=== PATIENT | male | born 1940 | race Caucasian/White ===

== ENCOUNTER → 2017-02-16 | Outpatient (CLI) | payer MEDICARE ==
--- NOTE | 2017-02-16 12:59 | XR ---
EXAMINATION TYPE: XR chest 2V DATE OF EXAM: 02/16/2017 COMPARISON: NONE HISTORY: Shortness of breath TECHNIQUE: Frontal and lateral views of the chest are obtained. FINDINGS: There is no focal air space opacity, pleural effusion, or pneumothorax seen. There is even tration of the right hemidiaphragm. The cardiac silhouette size is within normal limits. The osseou s structures are intact. Degenerative changes are seen of the thoracic spine. IMPRESSION: No acute cardiopulmonary process.
== END | disposition home or self-care (01) ==
LOC: RADXRMAIN 12:11
PROVIDERS: ATTEND Internal Medicine
DX: R06.02 Shortness of breath (principal)
CPT/HCPCS: 71020

== ENCOUNTER 2017-09-20 15:14 | Emergency (ER) | payer MEDICARE ==
[2017-09-20] MEDS ORDERED: ONDANSETRON 4 MG/2 ML VIAL IVP STA (17:33)
[2017-09-20] MEDS ORDERED: SODIUM CHLORIDE 0.9% 1,000 ML IV STA (17:33)
[2017-09-20 18:37] LABS: Basophils % (A) 0 %; Eosinophils # (A) 0.1 k/uL (0-0.7); Eosinophils % (A) 2 %; HCT 46.1 % (39.0-53.0); HGB 14.5 gm/dL (13.0-17.5); Lymphocytes # (A) 1.4 k/uL (1.0-4.8); Lymphocytes % (A) 21 %; MCH 27.6 pg (25.0-35.0); MCHC 31.5 g/dL (31.0-37.0); MCV 87.5 fL (80.0-100.0); Mean Platelet Volume 6.7; Monocytes # (A) 0.4 k/uL (0-1.0); Monocytes % (A) 6 %; Neutrophils # (A) 4.7 k/uL (1.3-7.7); Neutrophils % (A) 69 %; Platelet Count 253 k/uL (150-450); RBC 5.27 m/uL (4.30-5.90); WBC 6.8 k/uL (3.8-10.6)
[2017-09-20 18:40] LABS: ALT 33 U/L (21-72); AST 29 U/L (17-59); Albumin 3.6 g/dL (3.5-5.0); Alkaline Phosphatase 50 U/L (38-126); Anion Gap 10 mmol/L; Blood Urea Nitrogen 14 mg/dL (9-20); Calcium 9.3 mg/dL (8.4-10.2); Carbon Dioxide 26 mmol/L (22-30); Chloride 106 mmol/L (98-107); Glucose 92 mg/dL (74-99); Potassium 4.1 mmol/L (3.5-5.1); Sodium 142 mmol/L (137-145); Total Bilirubin 0.4 mg/dL (0.2-1.3); Total Protein 5.9 g/dL (6.3-8.2)
[2017-09-20 18:49] LABS: Creatine Kinase 80 U/L (55-170)
[2017-09-20 19:02] LABS: Troponin I <0.012 ng/mL (0.000-0.034)
[2017-09-20 19:03] LABS: Creatine Kinase MB 3.2 ng/mL (0.0-2.4)
[2017-09-20 19:07] VITALS: RESP 18
[2017-09-20 20:22] VITALS: TEMP 98.1
--- NOTE | 2017-09-20 20:28 | ED ---
General Adult HPI - General Chief complaint: GI Bleed Stated complaint: blood in stool Time Seen by Provider: 09/20/17 17:33 Source: patient Mode of arrival: ambulatory Limitations: no limitations - History of Present Illness Initial comments: 77 years old male comes in with the diarrhea for last 2 weeks, he said he see some black tarry stuffiness stools this morning I denies any pain is worried about the GI bleed he has a colonoscopy done a few years ago he had some polyps. No headaches no neck pain no chest pain or shortness of breath no abdominal pain has some blood in the stool or black stool no frequency urgency dysuriasymptoms of TIA or CVA - Related Data Home Medications Medication Instructions Recorded Confirmed Acetaminophen Tab [Tylenol Tab] 325 mg PO Q6HR PRN 09/20/17 09/20/17 Cholecalciferol [Vitamin D3] 1,000 unit PO DAILY 09/20/17 09/20/17 Doxazosin Mesylate 8 mg PO DAILY 09/20/17 09/20/17 Glucosam/Shoaib-Msm1/C/Ji/Bosw 1 tab PO DAILY 09/20/17 09/20/17 [Glucosamine-Chondroitin Tablet] Multivitamins, Thera [Multivitamin 1 tab PO DAILY 09/20/17 09/20/17 (formulary)] [place]-3 Fatty Acids/Fish Oil [Fish 1 cap PO DAILY 09/20/17 09/20/17 Oil 1,000 mg Softgel] Pramipexole [Mirapex] 1 mg PO TID 09/20/17 09/20/17 Tamsulosin HCl [Flomax] 0.4 mg PO BID 09/20/17 09/20/17 Turmeric Root Extract [Turmeric] 500 mg PO DAILY 09/20/17 09/20/17 traZODone HCL [TraZODone HCl] 50 mg PO HS 09/20/17 09/20/17 Allergies Allergy/AdvReac Type Severity Reaction Status Date / Time amoxicillin Allergy Rash/Hives Verified 09/20/17 18:19 ENVIRONMENTAL Allergy Dyspnea/Itc Uncoded 09/20/17 18:19 h Review of Systems ROS Statement: Those systems with pertinent positive or pertinent negative responses have been documented in the HPI. ROS Other: All systems not noted in ROS Statement are negative. Past Medical History Additional Past Medical History / Comment(s): seasonal allergies History of Any Multi-Drug Resistant Organisms: None Reported Past Surgical History: Hernia Repair Past Psychological History: No Psychological Hx Reported Smoking Status: Current some day smoker Past Alcohol Use History: None Reported Past Drug Use History: None Reported General Exam - General Exam Comments Initial Comments: General: The patient is awake and alert, in no distress, and does not appear acutely ill. Skin: Skin is warm and dry and no rashes or lesions are noted. Eye: Pupils are equal, round and reactive to light, extra-ocular movements are intact; there is normal conjunctiva bilaterally. Ears, nose, mouth and throat: There are moist mucous membranes and no oral lesions. Neck: The neck is supple, there is no tenderness or JVD. Cardiovascular: There is a regular rate and rhythm. No murmur, rub or gallop is appreciated. Respiratory: To auscultation bilateral, no wheezing no rhonchi no distress respiratory carter noticed Gastrointestinal: Soft, non-distended, non-tender abdomen without masses or organomegaly noted. There is no rebound or guarding present. Bowel sounds are unremarkable. Rectal exam showed some external hemorrhoids, they were not thrombosed rectal exam good tone and no colton blood noticed blood draws or 7 was sent for occult blood , also noticed reducible hernia on the right inguinal area Back: There is no tenderness to palpation in the midline. There is no obvious deformity. Musculoskeletal: Normal ROM, no tenderness, There is no pedal edema. There is no calf tenderness or swelling. No cords were appreciated. Neurological: CN II-XII intact, Cranial nerves III through XII are intact. There are no obvious motor or sensory deficits. Coordination appears grossly intact. Speech is normal. Psychiatric: Cooperative, appropriate mood & affect, normal judgment. Limitations: no limitations Course Vital Signs 09/20/17 09/20/17 09/20/17 15:24 19:06 20:19 Temperature 97.8 F 98.1 F Pulse Rate 92 70 70 Respiratory 20 18 18 Rate Blood Pressure 136/74 137/80 136/65 O2 Sat by Pulse 96 95 95 Oximetry Patient was reassessed, noticed a hemoglobin is quite stable is 14.5 occult blood is negative troponin and compress metabolic panel absolutely unremarkable him a he has not been able to give us a stool sample of her like to send stool for C. difficile stool cultures and over and parasite. Now patient is advised to follow up with the GI doctor or general surgeon so we could he he could have a colonoscopy EGD as well as right-sided hernia repair which she has a long time and, is not incarcerated is easily reducible I offered the patient to see Dr. Lim for his scopes in right inguinal hernia, patient has seen somebody who he wants to see again for the scopes in the inguinal hernia repair, he is not sure about the name, he will discussed that with the Dr. Hughes Medical Decision Making - Lab Data Result diagrams: 09/20/17 18:20 09/20/17 18:20 Lab Results 09/20/17 09/20/17 09/20/17 Range/Units 18:20 18:20 18:20 WBC 6.8 (3.8-10.6) k/uL RBC 5.27 (4.30-5.90) m/uL Hgb 14.5 (13.0-17.5) gm/dL Hct 46.1 (39.0-53.0) % MCV 87.5 (80.0-100.0) fL MCH 27.6 (25.0-35.0) pg MCHC 31.5 (31.0-37.0) g/dL RDW 13.0 (11.5-15.5) % Plt Count 253 (150-450) k/uL Neutrophils % 69 % Lymphocytes % 21 % Monocytes % 6 % Eosinophils % 2 % Basophils % 0 % Neutrophils # 4.7 (1.3-7.7) k/uL Lymphocytes # 1.4 (1.0-4.8) k/uL Monocytes # 0.4 (0-1.0) k/uL Eosinophils # 0.1 (0-0.7) k/uL Basophils # 0.0 (0-0.2) k/uL APTT (22.0-30.0) sec Sodium 142 (137-145) mmol/L Potassium 4.1 (3.5-5.1) mmol/L Chloride 106 (98-107) mmol/L Carbon Dioxide 26 (22-30) mmol/L Anion Gap 10 mmol/L BUN 14 (9-20) mg/dL Creatinine 0.80 (0.66-1.25) mg/dL Est GFR (CKD-EPI)AfAm >90 (>60 ml/min/1.73 sqM) Est GFR (CKD-EPI)NonAf 86 (>60 ml/min/1.73 sqM) Glucose 92 (74-99) mg/dL Plasma Lactic Acid Cortes (0.7-2.0) mmol/L Calcium 9.3 (8.4-10.2) mg/dL Total Bilirubin 0.4 (0.2-1.3) mg/dL AST 29 (17-59) U/L ALT 33 (21-72) U/L Alkaline Phosphatase 50 (38-126) U/L Total Creatine Kinase 80 (55-170) U/L CK-MB (CK-2) 3.2 H* (0.0-2.4) ng/mL CK-MB (CK-2) Rel Index 4.0 Troponin I <0.012 (0.000-0.034) ng/mL Total Protein 5.9 L (6.3-8.2) g/dL Albumin 3.6 (3.5-5.0) g/dL Stool Occult Blood (Negative) 09/20/17 09/20/17 09/20/17 Range/Units 18:20 18:20 18:20 WBC (3.8-10.6) k/uL RBC (4.30-5.90) m/uL Hgb (13.0-17.5) gm/dL Hct (39.0-53.0) % MCV (80.0-100.0) fL MCH (25.0-35.0) pg MCHC (31.0-37.0) g/dL RDW (11.5-15.5) % Plt Count (150-450) k/uL Neutrophils % % Lymphocytes % % Monocytes % % Eosinophils % % Basophils % % Neutrophils # (1.3-7.7) k/uL Lymphocytes # (1.0-4.8) k/uL Monocytes # (0-1.0) k/uL Eosinophils # (0-0.7) k/uL Basophils # (0-0.2) k/uL APTT 22.4 (22.0-30.0) sec Sodium (137-145) mmol/L Potassium (3.5-5.1) mmol/L Chloride (98-107) mmol/L Carbon Dioxide (22-30) mmol/L Anion Gap mmol/L BUN (9-20) mg/dL Creatinine (0.66-1.25) mg/dL Est GFR (CKD-EPI)AfAm (>60 ml/min/1.73 sqM) Est GFR (CKD-EPI)NonAf (>60 ml/min/1.73 sqM) Glucose (74-99) mg/dL Plasma Lactic Acid Cortes 0.6 L (0.7-2.0) mmol/L Calcium (8.4-10.2) mg/dL Total Bilirubin (0.2-1.3) mg/dL AST (17-59) U/L ALT (21-72) U/L Alkaline Phosphatase (38-126) U/L Total Creatine Kinase (55-170) U/L CK-MB (CK-2) (0.0-2.4) ng/mL CK-MB (CK-2) Rel Index Troponin I (0.000-0.034) ng/mL Total Protein (6.3-8.2) g/dL Albumin (3.5-5.0) g/dL Stool Occult Blood Negative (Negative) Disposition Clinical Impression: Rectal bleed, Right inguinal hernia, Diarrhea Disposition: HOME SELF-CARE Condition: Good Instructions: Gastrointestinal Bleeding (ED) Referrals: Ian Hughes MD [Primary Care Provider] - 1-2 days
[2017-09-20 21:01] VITALS: BP 133/74; PULSE 88
== END 2017-09-20 21:00 | disposition home or self-care (01) ==
LOC: EC 15:14
DX: K40.90 Unilateral inguinal hernia, without obstruction or gangrene, not specified as recurrent (principal); R19.7 Diarrhea, unspecified; K62.5 Hemorrhage of anus and rectum; F17.200 Nicotine dependence, unspecified, uncomplicated; Z79.899 Other long term (current) drug therapy; Z88.0 Allergy status to penicillin; Z91.048 Other nonmedicinal substance allergy status
CPT/HCPCS: 99284; 96374; 36415; 80053; 82550; 82553; 83605; 84484; 85025; 85730; 82272; 87324; 87045; 87046; J2405

== ENCOUNTER → 2017-10-04 | Day surgery (SDC) | payer MEDICARE ==
[2017-09-27 17:50] VITALS: BMI 24.4
[~2017-10-04] MED LIST: DEXAMETHASONE SOD PHOSPHATE 10 MG/ML 1 ML VIAL IV ONE; LACTATED RINGERS 1,000 ML IV SCH; LIDOCAINE 1% 20 ML VIAL (10MG/ML) FOR IV START INTRADERMA ONE; LIDOCAINE 1% INJ 10MG/ML (20 ML MDV) ONE; MORPHINE SULFATE 4MG/4ML SYRG IV PRN; ONDANSETRON 4 MG/2 ML VIAL IVP ONE; PROPOFOL 10 MG/ML 20 ML VIAL IV ONE
[2017-10-04 09:43] VITALS: TEMP 98.7
--- NOTE | 2017-10-04 10:39 | P.GSHP ---
History of Present Illness H&P Date: 10/04/17 Chief Complaint: Diarrhea, colitis This a 69-year-old male who presents for colonoscopy. He's had issues with diarrhea. Past Medical History Past Medical History: Prostate Disorder Additional Past Medical History / Comment(s): SL Seasonal allergies. DIARRHEA FOR FEW WEEKS. History of Any Multi-Drug Resistant Organisms: None Reported Past Surgical History: Hernia Repair Additional Past Surgical History / Comment(s): LASER EYE. COLONOSCOPY. Past Anesthesia/Blood Transfusion Reactions: Previous Problems w/ Anesthesia Additional Past Anesthesia/Blood Transfusion Reaction / Comment(s): NEEDED MORE IV SEDATION FOR COLONOSCOPY Smoking Status: Current every day smoker - Past Family History Brother(s) Family Medical History: Cancer Medications and Allergies Home Medications Medication Instructions Recorded Confirmed Type Acetaminophen Tab [Tylenol Tab] 325 mg PO Q6HR PRN 09/20/17 10/04/17 History Cholecalciferol [Vitamin D3] 1,000 unit PO DAILY 09/20/17 10/04/17 History Doxazosin Mesylate 8 mg PO DAILY 09/20/17 10/04/17 History Glucosam/Shoaib-Msm1/C/Ji/Bosw 1 tab PO DAILY 09/20/17 10/04/17 History [Glucosamine-Chondroitin Tablet] Multivitamins, Thera [Multivitamin 1 tab PO DAILY 09/20/17 10/04/17 History (formulary)] [place]-3 Fatty Acids/Fish Oil [Fish 1 cap PO DAILY 09/20/17 10/04/17 History Oil 1,000 mg Softgel] Pramipexole [Mirapex] 1 mg PO TID PRN 09/20/17 10/04/17 History Tamsulosin HCl [Flomax] 0.4 mg PO BID 09/20/17 10/04/17 History Turmeric Root Extract [Turmeric] 500 mg PO DAILY 09/20/17 10/04/17 History Aspirin EC [Ecotrin Low Dose] 81 mg PO DAILY 09/27/17 10/04/17 History Ibuprofen [Advil] 600 mg PO Q8HR PRN 09/27/17 10/04/17 History Allergies Allergy/AdvReac Type Severity Reaction Status Date / Time amoxicillin Allergy Rash/Hives Verified 10/04/17 09:28 ENVIRONMENTAL Allergy NASAL Uncoded 10/04/17 09:28 CONGESTION Surgical - Exam Vital Signs Temp Pulse Resp BP Pulse Ox 98.7 F 77 18 137/78 96 10/04/17 09:41 10/04/17 09:41 10/04/17 09:41 10/04/17 09:41 10/04/17 09:41 - General well developed, no distress - Eyes PERRL - ENT normal pinna - Neck no masses - Respiratory normal expansion - Cardiovascular Rhythm: regular - Abdomen Abdomen: soft, non tender Assessment and Plan Assessment: Diarrhea. We'll perform colonoscopy.
--- NOTE | 2017-10-04 11:04 | P.OP ---
Date of Procedure: 10/04/17 Preoperative Diagnosis: Diarrhea Postoperative Diagnosis: Internal and external hemorrhoids Diverticulosis Colon polyp at 50 cm Random sigmoid colon colon biopsy pathology pending Procedure(s) Performed: Colonoscopy Anesthesia: MAC Surgeon: Natanael Lim Pathology: other (Colonic polyp at 50 cm,Sigmoid Biopsy) Condition: stable Disposition: PACU Description of Procedure: The patient's placed on the endoscopy table lateral position. He received IV sedation. Digital rectal exam was performed which revealed internal and external hemorrhoids. The flexible colonoscope was then placed patient anus passed throughout the the colon. The ileocecal valve was visualized secondary to tortuosity valve. Scope was withdrawn. The remainder of the right colon, transverse colon appeared normal. In the descending colon there is diverticular changes. At the 50 cm cash there was a large fluffy polyp was removed with the snare. Scope was withdrawn and in the sigmoid colon there was extensive diverticular changes. A biopsy of the; was performed with cold forcep. Scope summer back the rectum and this appeared normal. Scope withdrawn for patient.
[2017-10-04 11:54] VITALS: BP 125/72; PULSE 83; RESP 18
== END | disposition home or self-care (01) ==
LOC: ORWHC2ENDO 09:07
PROVIDERS: ATTEND Surgery
DX: D12.4 Benign neoplasm of descending colon (principal); K57.30 Diverticulosis of large intestine without perforation or abscess without bleeding; K64.8 Other hemorrhoids; K64.4 Residual hemorrhoidal skin tags; F41.9 Anxiety disorder, unspecified; N40.0 Benign prostatic hyperplasia without lower urinary tract symptoms; F17.200 Nicotine dependence, unspecified, uncomplicated; Z91.09 Other allergy status, other than to drugs and biological substances; Z88.0 Allergy status to penicillin; Z79.82 Long term (current) use of aspirin; Z79.899 Other long term (current) drug therapy; Z80.9 Family history of malignant neoplasm, unspecified
CPT/HCPCS: 45385; 45380; 88305; J2001; J2704

== ENCOUNTER 2019-08-27 14:22 | Observation (INO) | payer MEDICARE ==
[2019-08-27] MEDS ORDERED: SODIUM CHLORIDE 0.9% 1,000 ML IV STA (17:11)
[2019-08-27] MEDS ORDERED: ACETAMINOPHEN TAB 500 MG TAB PO PRN (17:11)
[2019-08-27 17:59] LABS: Basophils % (A) 0 %; Eosinophils # (A) 0.1 k/uL (0-0.7); Eosinophils % (A) 2 %; HCT 44.2 % (39.0-53.0); HGB 14.1 gm/dL (13.0-17.5); Lymphocytes # (A) 1.4 k/uL (1.0-4.8); Lymphocytes % (A) 23 %; MCH 27.9 pg (25.0-35.0); MCHC 31.9 g/dL (31.0-37.0); MCV 87.5 fL (80.0-100.0); Mean Platelet Volume 7.1; Monocytes # (A) 0.3 k/uL (0-1.0); Monocytes % (A) 5 %; Neutrophils # (A) 4.3 k/uL (1.3-7.7); Neutrophils % (A) 68 %; Platelet Count 270 k/uL (150-450); RBC 5.06 m/uL (4.30-5.90); RDW 12.9 % (11.5-15.5); WBC 6.4 k/uL (3.8-10.6)
[2019-08-27 18:23] LABS: ALT 16 U/L (4-49); AST 28 U/L (17-59); African American GFR (CKD) >90 (>60 ml/min/1.73 sqM); Albumin 3.7 g/dL (3.5-5.0); Alkaline Phosphatase 64 U/L (38-126); Anion Gap 7 mmol/L; Blood Urea Nitrogen 17 mg/dL (9-20); Calcium 8.7 mg/dL (8.4-10.2); Carbon Dioxide 25 mmol/L (22-30); Chloride 105 mmol/L (98-107); Glucose 93 mg/dL (74-99); Non-African American GFR(CKD) 82 (>60 ml/min/1.73 sqM); Potassium 4.1 mmol/L (3.5-5.1); Sodium 137 mmol/L (137-145); Total Bilirubin 0.3 mg/dL (0.2-1.3); Total Protein 6.4 g/dL (6.3-8.2)
[2019-08-27] MEDS ORDERED: IBUPROFEN 600 MG TAB PO PRN (19:43)
[2019-08-27] MEDS ORDERED: [UNRECOGNIZED DRUG - OTHER] PO PRN (19:43)
[2019-08-27] MEDS ORDERED: FUROSEMIDE 20 MG TAB PO PRN (19:43)
[2019-08-27] MEDS: TAMSULOSIN 0.4 MG CAP.ER.24H PO SCH (21:54)
[2019-08-27] MEDS: traZODone HCL 50 MG TAB PO SCH (21:54)
[2019-08-27] MEDS: PRAMIPEXOLE 1 MG TAB PO PRN (21:57)
[2019-08-28] MEDS: MELOXICAM 7.5 MG TAB PO SCH (09:08)
[2019-08-28] MEDS: LACTOBACILLUS ACIDOPH & BULGAR 1 EACH PACKET PO SCH (09:08)
[2019-08-28] MEDS: DOXAZOSIN 4 MG TAB PO SCH ×2 (09:10→20:24)
[2019-08-28] MEDS: TAMSULOSIN 0.4 MG CAP.ER.24H PO SCH ×2 (09:11→20:24)
[2019-08-28] MEDS: PANTOPRAZOLE 40 MG TABLET PO SCH (09:11)
[2019-08-28 09:31] LABS: Basophils % (A) 1 %; Eosinophils # (A) 0.3 k/uL (0-0.7); Eosinophils % (A) 4 %; HCT 47.2 % (39.0-53.0); Lymphocytes # (A) 1.7 k/uL (1.0-4.8); Lymphocytes % (A) 29 %; MCH 28.2 pg (25.0-35.0); MCHC 31.9 g/dL (31.0-37.0); MCV 88.7 fL (80.0-100.0); Mean Platelet Volume 7.1; Monocytes # (A) 0.3 k/uL (0-1.0); Monocytes % (A) 6 %; Neutrophils # (A) 3.4 k/uL (1.3-7.7); Neutrophils % (A) 57 %; Platelet Count 270 k/uL (150-450); RBC 5.33 m/uL (4.30-5.90); RDW 12.9 % (11.5-15.5); WBC 5.9 k/uL (3.8-10.6)
[2019-08-28 09:48] LABS: ALT 17 U/L (4-49); AST 30 U/L (17-59); African American GFR (CKD) >90 (>60 ml/min/1.73 sqM); Albumin 3.7 g/dL (3.5-5.0); Alkaline Phosphatase 60 U/L (38-126); Anion Gap 8 mmol/L; Blood Urea Nitrogen 14 mg/dL (9-20); Calcium 8.9 mg/dL (8.4-10.2); Carbon Dioxide 26 mmol/L (22-30); Chloride 105 mmol/L (98-107); Glucose 88 mg/dL (74-99); Non-African American GFR(CKD) 82 (>60 ml/min/1.73 sqM); Potassium 4.4 mmol/L (3.5-5.1); Sodium 139 mmol/L (137-145); Total Bilirubin 0.8 mg/dL (0.2-1.3); Total Protein 6.6 g/dL (6.3-8.2)
[2019-08-28] MEDS ORDERED: VANCOMYCIN IV PER PHARMACY 1 EACH MISC MISCELLANE PRN (10:30)
--- NOTE | 2019-08-28 10:31 | P.HPIM ---
History of Present Illness H&P Date: 08/28/19 Chief Complaint: Failed outpatient treatment cellulitis This is an 79-year-old male patient who presented instructed mid from his PCP with failed outpatient treatment for bilateral lower summary cellulitis. Patient reports that he's been dealing with this issue since beginning of July and his PCP did want to initially admit him but patient declined. Patient reports that the cellulitis was up higher on his leg but that has improved but he still is having issues with it not completely resolving. Patient denies any recent fevers at home does note he has had intermittent drainage from left lower extremity. Patient reports last antibiotic he was on was doxycycline. Patient's additional medical history includes prostate disorder, nicotine dependence and seasonal ALLERGY. At this time blood culture has been ordered. Infectious disease consult placed Review of Systems Please refer to HPI otherwise unremarkable Past Medical History Past Medical History: Prostate Disorder Additional Past Medical History / Comment(s): SL Seasonal allergies. DIARRHEA FOR FEW WEEKS. History of Any Multi-Drug Resistant Organisms: None Reported Past Surgical History: Hernia Repair Additional Past Surgical History / Comment(s): LASER EYE. COLONOSCOPY. Past Anesthesia/Blood Transfusion Reactions: Previous Problems w/ Anesthesia Additional Past Anesthesia/Blood Transfusion Reaction / Comment(s): NEEDED MORE IV SEDATION FOR COLONOSCOPY Past Psychological History: No Psychological Hx Reported Smoking Status: Current every day smoker Past Alcohol Use History: None Reported Additional Past Alcohol Use History / Comment(s): SMOKES ON/OFF MOST OF ADULT LIFE, 1/2 PPD- Started smoking in 1954. Past Drug Use History: None Reported - Past Family History Brother(s) Family Medical History: Cancer Medications and Allergies Home Medications Medication Instructions Recorded Confirmed Type Acetaminophen Tab [Tylenol Tab] 325 mg PO Q6HR PRN 09/20/17 08/27/19 History Doxazosin Mesylate 8 mg PO DAILY 09/20/17 08/27/19 History Pramipexole [Mirapex] 1 mg PO TID PRN 09/20/17 08/27/19 History Tamsulosin HCl [Flomax] 0.4 mg PO BID 09/20/17 08/27/19 History Ibuprofen [Advil] 600 mg PO Q8HR PRN 09/27/17 08/27/19 History Celecoxib [CeleBREX] 200 mg PO DAILY 08/27/19 08/27/19 History Doxycycline Hyclate 100 mg PO AC-BID 08/27/19 08/27/19 History Furosemide [Lasix] 20 mg PO HS PRN 08/27/19 08/27/19 History Rhett's Leg Cramps Pm 2 - 3 tab PO Q4H PRN 08/27/19 08/27/19 History L.acidoph,Paracasei, B.lactis 1 cap PO DAILY 08/27/19 08/27/19 History [Probiotic] Omeprazole 20 mg PO DAILY 08/27/19 08/27/19 History traZODone HCL [TraZODone HCl] 50 mg PO HS 08/27/19 08/27/19 History Allergies Allergy/AdvReac Type Severity Reaction Status Date / Time amoxicillin Allergy Rash/Hives Verified 08/27/19 19:25 ENVIRONMENTAL Allergy NASAL Uncoded 08/27/19 19:25 CONGESTION Physical Exam Vitals: Vital Signs Temp Pulse Resp BP Pulse Ox 08/28/19 07:39 97.5 F L 64 16 146/77 96 08/28/19 05:05 97.8 F 77 17 150/88 95 08/27/19 21:19 97.4 F L 83 18 162/78 97 08/27/19 17:49 97.4 F L 82 18 144/75 95 Intake and Output 08/27/19 08/28/19 08/28/19 22:59 06:59 14:59 Intake Total 160 Balance 160 Intake: Intake, IV Titration 160 Amount Sodium Chloride 0.9% 1, 160 000 ml @ 20 mls/hr IV . Q24H [facility] Rx#:[id number] Other: Voiding Method Toilet Toilet # Voids 1 Weight 89.358 kg Head normocephalic Neck supple Lungs clear to auscultation bilaterally no wheezing or crackles Heart regular rate and rhythm S1-S2, no rub or gallop Abdomen is soft nontender nondistended positive bowel sounds no hepa tosplenomegaly Extremities left lower extremity erythema up to knee. Right lower extremity erythema midshin Neuro alert and orientated to 3 Results CBC & Chem 7: 08/28/19 07:59 08/28/19 07:59 Thrombosis Risk Factor Assmnt - Choose All That Apply Each Factor Represents 1 point: Swollen legs (current) Each Risk Factor Represents 3 Points: Age 75 years or older Thrombosis Risk Factor Assessment Total Risk Factor Score: 4 Thrombosis Risk Factor Assessment Level: Moderate Risk Assessment and Plan Assessment: 1. Bilateral lower extremity cellulitis with failed outpatient treatment. Infectious disease has been consulted will discuss antibiotic choice with infectious disease. Bilateral lower extremity venous Doppler ordered to rule out DVT. Blood culture ordered 2. History of prostate disorder. She is maintained on Flomax 3. History of seasonal ALLERGIES 4. Nicotine dependence. Patient educated greater than 3 minutes on smoking sensation. Nicotine patch ordered DVT prophylaxis Lovenox. GI prophylaxis Pepcid Time with Patient: Greater than 30 (Greater than 60% of the total time spent in counseling and coordination of care. I performed an examination of the patient and discussed their management with the Nurse Practitioner. I have reviewed the Nurse Practitioner's notes and agree with the documented findings and plan of care)
[2019-08-28] MEDS ORDERED: VANCOMYCIN 1,500 MG in SODIUM CHLORIDE 0.9% 250 ML IVPB SCH (12:00)
--- NOTE | 2019-08-28 12:12 | US ---
EXAMINATION TYPE: US venous doppler duplex LE DATE OF EXAM: 08/28/2019 10:25 AM COMPARISON: NONE CLINICAL HISTORY: Bilateral lower extremity erythema. Edema and redness. SIDE PERFORMED: Bilateral TECHNIQUE: The lower extremity deep venous system is examined utilizing real time linear array sonog zbigniew with graded compression, doppler sonography and color-flow sonography. VESSELS IMAGED: External Iliac Vein (EIV) Common Femoral Vein Deep Femoral Vein Greater Saphenous Vein * Femoral Vein Popliteal Vein Small Saphenous Vein * Proximal Calf Veins (* superficial vessels) Right Leg: Negative for DVT Left Leg: Negative for DVT IMPRESSION: 1. Bilateral lower extremity ultrasound negative for deep venous thrombosis.
--- NOTE | 2019-08-28 17:30 | P.CONS ---
History of Present Illness - Reason for Consult Consult date: 08/28/19 Bilateral lower extremity cellulitis left greater than right failing outpat Requesting physician: Ian Hughes - Chief Complaint Left leg pain swelling and redness x few weeks - History of Present Illness Patient is 79-year-old male who has been admitted directly to the hospital with concern for left lower eczema cellulitis failing outpatient oral antibiotic therapy, patient apparently has been dealing with swelling more marked the left leg followed by redness or the last few weeks that has been treated with 2 different courses of oral antibiotics initially with clindamycin and subsequently with oral doxycycline however the patient did not have any improvement subsequently the patient was admitted directly to the hospital, patient may symptom has been swelling to the leg especially the left leg for the patient did have Doppler has been negative for DVT, he did have some dull aching pain to the leg and has been about 3-4 out of 10 and no radiation patient did have dry scaly skin currently with no open wound or any drainage and has mostly diffuse redness to the left leg, because of his outpatient oral antibiotics failure and is ALLERGIC to amoxicillin without rash no history of anaphylaxis the patient was started on vancomycin and infectious disease was consulted for further recommendation regarding antibiotic therapy, patient apparently did have some chronic swelling to the lower simply for which the patient supposed to use some compression stocking not using that often though Review of Systems Positive point has been mentioned in the HPI rest of the systems are negative Past Medical History Past Medical History: Prostate Disorder Additional Past Medical History / Comment(s): SL Seasonal allergies. DIARRHEA FOR FEW WEEKS. History of Any Multi-Drug Resistant Organisms: None Reported Past Surgical History: Hernia Repair Additional Past Surgical History / Comment(s): LASER EYE. COLONOSCOPY. Past Anesthesia/Blood Transfusion Reactions: Previous Problems w/ Anesthesia Additional Past Anesthesia/Blood Transfusion Reaction / Comm: NEEDED MORE IV SEDATION FOR COLONOSCOPY Past Psychological History: No Psychological Hx Reported Smoking Status: Current every day smoker Past Alcohol Use History: None Reported Additional Past Alcohol Use History / Comment(s): SMOKES ON/OFF MOST OF ADULT LIFE, 1/2 PPD- Started smoking in 4. Past Drug Use History: None Reported - Past Family History Brother(s) Family Medical History: Cancer Medications and Allergies Home Medications Medication Instructions Recorded Confirmed Type Acetaminophen Tab [Tylenol Tab] 325 mg PO Q6HR PRN 09/20/17 08/27/19 History Doxazosin Mesylate 8 mg PO DAILY 09/20/17 08/27/19 History Pramipexole [Mirapex] 1 mg PO TID PRN 09/20/17 08/27/19 History Tamsulosin HCl [Flomax] 0.4 mg PO BID 09/20/17 08/27/19 History Ibuprofen [Advil] 600 mg PO Q8HR PRN 09/27/17 08/27/19 History Celecoxib [CeleBREX] 200 mg PO DAILY 08/27/19 08/27/19 History Doxycycline Hyclate 100 mg PO AC-BID 08/27/19 08/27/19 History Furosemide [Lasix] 20 mg PO HS PRN 08/27/19 08/27/19 History Rhett's Leg Cramps Pm 2 - 3 tab PO Q4H PRN 08/27/19 08/27/19 History L.acidoph,Paracasei, B.lactis 1 cap PO DAILY 08/27/19 08/27/19 History [Probiotic] Omeprazole 20 mg PO DAILY 08/27/19 08/27/19 History traZODone HCL [TraZODone HCl] 50 mg PO HS 08/27/19 08/27/19 History Allergies Allergy/AdvReac Type Severity Reaction Status Date / Time amoxicillin Allergy Rash/Hives Verified 08/27/19 19:25 ENVIRONMENTAL Allergy NASAL Uncoded 08/27/19 19:25 CONGESTION Physical Exam Vitals: Vital Signs Temp Pulse Resp BP Pulse Ox 08/28/19 12:48 98 F 74 16 133/74 96 08/28/19 11:30 97.8 F 63 18 127/74 94 L 08/28/19 07:39 97.5 F L 64 16 146/77 96 08/28/19 05:05 97.8 F 77 17 150/88 95 08/27/19 21:19 97.4 F L 83 18 162/78 97 08/27/19 17:49 97.4 F L 82 18 144/75 95 Intake and Output 08/28/19 08/28/19 08/28/19 06:59 14:59 22:59 Intake Total 160 250 Balance 160 250 Intake: Intake, IV Titration 160 250 Amount Sodium Chloride 0.9% 1, 160 000 ml @ 20 mls/hr IV . Q24H [facility] Rx#:[id number] Vancomycin 1,500 mg In 250 Sodium Chloride 0.9% 250 ml @ 125 mls/hr IVPB Q12H REPLACED BY [facility] Rx#:[id number] Other: Voiding Method Toilet Toilet # Voids 3 # Bowel Movements 1 GENERAL DESCRIPTION: An elderly male lying in bed, no distress. No tachypnea or accessory muscle of respiration use. HEENT: Shows Pallor , no scleral icterus. Oral mucous membrane is dry. No pharyngeal erythema or thrush NECK: Trachea central, no thyromegaly. LUNGS: Unlabored breathing. Clear to auscultation anteriorly. No wheeze or crackle. HEART: S1, S2, regular rate and rhythm. No loud murmur ABDOMEN: Soft, no tenderness , guarding or rigidity, no organomegaly EXTREMITIES: Left leg swelling diffuse and redness did have dry scaly skin currently no open wound or any drainage right leg did have minimal redness above the ankle area SKIN: No rash, no masses palpable. NEUROLOGICAL: The patient is awake, alert, oriented x3, mood and affect normal. Results CBC & Chem 7: 08/28/19 07:59 08/28/19 07:59 Assessment and Plan Assessment: 1-patient with acute left lower extremity cellulitis failing outpatient oral antibiotic therapy in this patient who did have diffuse swelling and redness likely streptococcal disease clinically suspicious low for MRSA or gram-negative infection 2-patient with amoxicillin ALLERGY with rash no history of anaphylaxis (1) Left leg cellulitis Current Visit: Yes Status: Acute Code(s): L03.116 - CELLULITIS OF LEFT LOWER LIMB SNOMED Code(s): 919007928 Plan: 1-discontinue the vancomycin 2-we will start the patient cefazolin 2 g every 8 hours 3-moisturizing cream to the left leg than apply Chava wrap from just above the toe to below the knee We will follow on clinical condition and cultures to further adjust medication if needed Thank you for this consultation will follow this patient with you
[2019-08-28] MEDS: AMMONIUM LACTATE 12% LOTION 225 GM BTL TOPICAL SCH (20:24)
[2019-08-28] MEDS: traZODone HCL 50 MG TAB PO SCH (20:24)
[2019-08-29 08:12] LABS: Basophils % (A) 1 %; Eosinophils # (A) 0.2 k/uL (0-0.7); Eosinophils % (A) 3 %; HCT 44.9 % (39.0-53.0); HGB 13.9 gm/dL (13.0-17.5); Lymphocytes # (A) 1.4 k/uL (1.0-4.8); Lymphocytes % (A) 25 %; MCH 27.6 pg (25.0-35.0); MCHC 30.9 g/dL (31.0-37.0); MCV 89.1 fL (80.0-100.0); Mean Platelet Volume 7.1; Monocytes # (A) 0.4 k/uL (0-1.0); Monocytes % (A) 6 %; Neutrophils # (A) 3.5 k/uL (1.3-7.7); Neutrophils % (A) 63 %; Platelet Count 242 k/uL (150-450); RBC 5.03 m/uL (4.30-5.90); WBC 5.5 k/uL (3.8-10.6)
[2019-08-29 08:25] LABS: Albumin 3.2 g/dL (3.5-5.0); Calcium 8.6 mg/dL (8.4-10.2); Potassium 4.4 mmol/L (3.5-5.1); Total Bilirubin 0.4 mg/dL (0.2-1.3); Total Protein 5.9 g/dL (6.3-8.2)
[2019-08-29] MEDS: PANTOPRAZOLE 40 MG TABLET PO SCH (08:59)
[2019-08-29] MEDS: FAMOTIDINE 20 MG TAB PO SCH (08:59)
[2019-08-29] MEDS: DOXAZOSIN 4 MG TAB PO SCH ×2 (09:00→21:02)
[2019-08-29] MEDS: MELOXICAM 7.5 MG TAB PO SCH (09:00)
[2019-08-29] MEDS: TAMSULOSIN 0.4 MG CAP.ER.24H PO SCH ×2 (09:01→21:02)
[2019-08-29] MEDS: ENOXAPARIN 40 MG/0.4 ML SYRINGE SQ SCH (09:01)
[2019-08-29] MEDS: LACTOBACILLUS ACIDOPH & BULGAR 1 EACH PACKET PO SCH (09:02)
[2019-08-29] MEDS: AMMONIUM LACTATE 12% LOTION 225 GM BTL TOPICAL SCH ×2 (09:03→20:59)
[2019-08-29] MEDS: NICOTINE 14MG/24HR PATCH TRANSDERM SCH (09:10)
[2019-08-29] MEDS: PRAMIPEXOLE 1 MG TAB PO PRN (11:23)
--- NOTE | 2019-08-29 13:18 | P.PN ---
Subjective Progress Note Date: 08/29/19 This is an 79-year-old male patient who presented instructed mid from his PCP with failed outpatient treatment for bilateral lower summary cellulitis. Patient reports that he's been dealing with this issue since beginning of July and his PCP did want to initially admit him but patient declined. Dede rod reports that the cellulitis was up higher on his leg but that has improved but he still is having issues with it not completely resolving. Patient denies any recent fevers at home does note he has had intermittent drainage from left lower extremity. Patient reports last antibiotic he was on was doxycycline. Patient's additional medical history includes prostate disorder, nicotine dependence and seasonal ALLERGY. At this time blood culture has been ordered. Infectious disease consult placed On 08/29/2019 patient's alert and oriented 3. Venous Doppler negative for DVT. Antibiotics have been adjusted the cephalocaudal in 2 g every 8 hours per infectious disease. Patient is anxious to get out of here. Explained to Patient he needs IV antibiotics this time. At this time patient denies chest pain or shortness breath. Patient denies nausea vomiting or diarrhea. Patient denies any urinary burning or frequency Objective - Vital Signs Vital signs: Vital Signs Temp 96.8 F L 08/29/19 12:19 Pulse 77 08/29/19 12:19 Resp 17 08/29/19 12:19 BP 133/72 08/29/19 12:19 Pulse Ox 95 08/29/19 12:19 Intake & Output 08/28/19 08/29/19 08/29/19 18:59 06:59 18:59 Intake Total 250 270 Balance 250 270 Intake: Intake, IV Titration 250 270 Amount Sodium Chloride 0.9% 1, 220 000 ml @ 20 mls/hr IV . Q24H [facility] Rx#:[id number] Vancomycin 1,500 mg In 250 Sodium Chloride 0.9% 250 ml @ 125 mls/hr IVPB Q12H [facility] Rx#:[id number] ceFAZolin 2 gm In Sodium 50 Chloride 0.9% 50 ml @ 100 mls/hr IVPB Q8HR [facility] Rx# :[id number] Other: Voiding Method Toilet Toilet Toilet # Voids 3 # Bowel Movements 1 - Exam Head normocephalic Neck supple Lungs clear to auscultation bilaterally no wheezing or crackles Heart regular rate and rhythm S1-S2, no rub or gallop Abdomen is soft nontender nondistended positive bowel sounds no hepatosplenomegaly Extremities left lower extremity erythema up to knee. Right lower extremity erythema midshin Neuro alert and orientated to 3 - Labs CBC & Chem 7: 08/29/19 07:43 08/29/19 07:43 Labs: Abnormal Lab Results - Last 24 Hours (Table) 08/29/19 08/29/19 Range/Units 07:43 07:43 MCHC 30.9 L (31.0-37.0) g/dL Glucose 127 H (74-99) mg/dL Total Protein 5.9 L (6.3-8.2) g/dL Albumin 3.2 L (3.5-5.0) g/dL Microbiology - Last 24 Hours (Table) 08/28/19 10:47 Blood Culture - Preliminary Blood No Growth after 24 hours Assessment and Plan Assessment: 1. Bilateral lower extremity cellulitis with failed outpatient treatment. Infectious disease has been consulted will discuss antibiotic choice with infectious disease. Bilateral lower extremity Doppler negative for DVT. Blood culture ordered. Antibiotics have been adjusted to cephalosporin 2 g every 8 hours per infectious disease 2. History of prostate disorder. She is maintained on Flomax 3. History of seasonal ALLERGIES 4. Nicotine dependence. Patient educated greater than 3 minutes on smoking sensation. Nicotine patch ordered DVT prophylaxis Lovenox. GI prophylaxis Pepcid I performed an examination of the patient and discussed their management with the Nurse Practitioner. I have reviewed the Nurse Practitioner's notes and agree with the documented findings and plan of care
[2019-08-29] MEDS ORDERED: VANCOMYCIN IV PER PHARMACY 1 EACH MISC MISCELLANE PRN (16:21)
[2019-08-29] MEDS: VANCOMYCIN 1,500 MG in SODIUM CHLORIDE 0.9% 250 ML IVPB SCH (17:12)
[2019-08-29] MEDS: traZODone HCL 50 MG TAB PO SCH (21:02)
--- NOTE | 2019-08-29 23:36 | PN ---
PROGRESS NOTE DATE OF SERVICE: 08/29/2019 REASON FOR FOLLOWUP: Left lower extremity cellulitis. INTERVAL HISTORY: The patient was seen on rounds early this afternoon. The patient has been afebrile. The patient was complaining that the Chava wrap was too tight for him, so he had to take it off last night. He denies having any chest pain, shortness of breath or cough. No abdominal pain. No diarrhea. Did not have significant improvement with cefazolin and wants to be switched back to vancomycin. PHYSICAL EXAMINATION: Blood pressure 138/81 with a pulse of 84, temperature 97.6. He is 95% on room air. General description is an elderly male lying in bed in no distress. RESPIRATORY SYSTEM: Unlabored breathing. Clear to auscultation anteriorly. HEART: S1, S2. Regular rate and rhythm. ABDOMEN: Soft. No tenderness. Left leg swelling and redness have slightly decreased. LABS: Hemoglobin 13.9, white count 5.5, creatinine 0.94. Blood culture has been negative. DIAGNOSTIC IMPRESSION AND PLAN: Patient with left lower extremity cellulitis with diffuse swelling and redness, likely streptococcal disease, and cefazolin patient insistent on being switched back to vancomycin, which will be done. With no oral option, he will need a PICC line for outpatient IV antibiotic therapy, which will be ordered. Once arranged, he will be able to go home to continue with vancomycin for 2 weeks with close outpatient followup. ATTILAL / VÍCTORN: [id number] /
[2019-08-30] MEDS: VANCOMYCIN 1,500 MG in SODIUM CHLORIDE 0.9% 250 ML IVPB SCH (04:56)
[2019-08-30 08:40] LABS: Basophils % (A) 0 %; Eosinophils # (A) 0.2 k/uL (0-0.7); Eosinophils % (A) 4 %; HCT 48.5 % (39.0-53.0); Lymphocytes # (A) 1.3 k/uL (1.0-4.8); Lymphocytes % (A) 22 %; MCH 27.3 pg (25.0-35.0); MCHC 30.8 g/dL (31.0-37.0); MCV 88.7 fL (80.0-100.0); Mean Platelet Volume 6.7; Monocytes # (A) 0.4 k/uL (0-1.0); Monocytes % (A) 6 %; Neutrophils # (A) 3.8 k/uL (1.3-7.7); Neutrophils % (A) 65 %; Platelet Count 274 k/uL (150-450); RBC 5.47 m/uL (4.30-5.90); RDW 12.7 % (11.5-15.5); WBC 5.9 k/uL (3.8-10.6)
[2019-08-30] MEDS: PANTOPRAZOLE 40 MG TABLET PO SCH (08:43)
[2019-08-30] MEDS: DOXAZOSIN 4 MG TAB PO SCH (08:43)
[2019-08-30] MEDS: LACTOBACILLUS ACIDOPH & BULGAR 1 EACH PACKET PO SCH (08:44)
[2019-08-30] MEDS: ENOXAPARIN 40 MG/0.4 ML SYRINGE SQ SCH (08:44)
[2019-08-30] MEDS: FAMOTIDINE 20 MG TAB PO SCH (08:44)
[2019-08-30] MEDS: MELOXICAM 7.5 MG TAB PO SCH (08:44)
[2019-08-30] MEDS: TAMSULOSIN 0.4 MG CAP.ER.24H PO SCH (08:46)
[2019-08-30] MEDS: NICOTINE 14MG/24HR PATCH TRANSDERM SCH (08:48)
[2019-08-30] MEDS: AMMONIUM LACTATE 12% LOTION 225 GM BTL TOPICAL SCH (08:49)
[2019-08-30 08:56] LABS: Albumin 3.8 g/dL (3.5-5.0); Potassium 4.6 mmol/L (3.5-5.1); Total Bilirubin 0.6 mg/dL (0.2-1.3); Total Protein 6.6 g/dL (6.3-8.2)
[2019-08-30 11:57] VITALS: BP 163/81; PULSE 76; RESP 17; TEMP 98.4
--- NOTE | 2019-08-30 14:16 | P.DS ---
Providers Date of admission: 08/27/19 16:23 Expected date of discharge: 08/30/19 Attending physician: Ian Hughes Consults: 08/27/19 17:09 Consult Physician Routine Consulting Provider: Dunia Poon Consult Reason/Comments: lower ext. cellulitis failed outpatient therapy Do you want consulting provider notified?: Yes Placement Type Exists?: Yes Primary care physician: Ian Saul [facility] Course: Discharge diagnosis 1. Bilateral lower extremity cellulitis with failed outpatient treatment. Infectious disease has been consulted will discuss antibiotic choice with infectious disease. Bilateral lower extremity Doppler negative for DVT. Blood culture ordered. Antibiotics have been adjusted to cephalosporin 2 g every 8 hours per infectious disease. She has been back and forth multiple times in regards to what antibiotic he wants. Patient has decided he wants cefazolin. Patient insisting COPD discharged home today with midline And the IV antibiotics. Patient received a midline prior to discharge. Case management following for antibiotic arrangement 2. History of prostate disorder. She is maintained on Flomax 3. History of seasonal ALLERGIES 4. Nicotine dependence. Patient educated greater than 3 minutes on smoking sensation. Nicotine patch ordered Hospital course This is an 79-year-old male patient who presented instructed mid from his PCP with failed outpatient treatment for bilateral lower summary cellulitis. Patient reports that he's been dealing with this issue since beginning of July and his PCP did want to initially admit him but patient declined. Patient reports that the cellulitis was up higher on his leg but that has improved but he still is having issues with it not completely resolving. Patient denies any recent fevers at home does note he has had intermittent drainage from left lower extremity. Patient reports last antibiotic he was on was doxycycline. Patient's additional medical history includes prostate disorder, nicotine dependence and seasonal ALLERGY. At this time blood culture has been ordered. Infectious disease consult placed On 08/29/2019 patient's alert and oriented 3. Venous Doppler negative for DVT. Antibiotics have been adjusted the cephalocaudal in 2 g every 8 hours per infectious disease. Patient is anxious to get out of here. Explained to Patient he needs IV antibiotics this time. At this time patient denies chest pain or shortness breath. Patient denies nausea vomiting or diarrhea. Patient denies any urinary burning or frequency on 08/30/2019 patient's alert and oriented 3. Patient is adamant that he be discharged home on certain antibiotic. Patient wants Kefzol. This was discussed with infectious disease. Midline to be placed case management to arrange antibiotic infusion. Patient will be DC'd on IV antibiotic for 10 days. At this time patient denies chest pain or shortness of breath. Patient denies nausea vomiting or diarrhea. Patient denies any urinary burning or frequency I performed an examination of the patient and discussed their management with the Nurse Practitioner. I have reviewed the Nurse Practitioner's notes and agree with the documented findings and plan of care Patient Condition at Discharge: Stable Plan - Discharge Summary Discharge Rx Participant: No New Discharge Prescriptions: New Ammonium Lactate Lotion [Lac-Hydrin 12% Lotion] 1 applic TOPICAL BID #1 tube Continue Acetaminophen Tab [Tylenol] 325 mg PO Q6HR PRN PRN Reason: Pain Tamsulosin HCl [Flomax] 0.4 mg PO BID Pramipexole [Mirapex] 1 mg PO TID PRN PRN Reason: RLS Doxazosin Mesylate 8 mg PO DAILY Ibuprofen [Advil] 600 mg PO Q8HR PRN PRN Reason: Pain Omeprazole 20 mg PO DAILY L.acidoph,Paracasei, B.lactis [Probiotic] 1 cap PO DAILY traZODone HCL 50 mg PO HS Furosemide [Lasix] 20 mg PO HS PRN PRN Reason: Edema Celecoxib [CeleBREX] 200 mg PO DAILY Rhett's Leg Cramps Pm 2 - 3 tab PO Q4H PRN PRN Reason: LEG PAIN Discontinued Doxycycline Hyclate 100 mg PO AC-BID Discharge Medication List Acetaminophen Tab [Tylenol] 325 mg PO Q6HR PRN 09/20/17 [History] Doxazosin Mesylate 8 mg PO DAILY 09/20/17 [History] Pramipexole [Mirapex] 1 mg PO TID PRN 09/20/17 [History] Tamsulosin HCl [Flomax] 0.4 mg PO BID 09/20/17 [History] Ibuprofen [Advil] 600 mg PO Q8HR PRN 09/27/17 [History] Celecoxib [CeleBREX] 200 mg PO DAILY 08/27/19 [History] Furosemide [Lasix] 20 mg PO HS PRN 08/27/19 [History] Rhett's Leg Cramps Pm 2 - 3 tab PO Q4H PRN 08/27/19 [History] L.acidoph,Paracasei, B.lactis [Probiotic] 1 cap PO DAILY 08/27/19 [History] Omeprazole 20 mg PO DAILY 08/27/19 [History] traZODone HCL 50 mg PO HS 08/27/19 [History] Ammonium Lactate Lotion [Lac-Hydrin 12% Lotion] 1 applic TOPICAL BID #1 tube 08/30/19 [Rx] Follow up Appointment(s)/Referral(s): [facility] Nurse, [NON-STAFF] - 1 Week
== END 2019-08-30 17:10 | disposition home health service (06) ==
LOC: 5NMEDONC 16:23 → INTOOBSV 16:23 → UNDODISIN 08-30 17:10
PROVIDERS: ADMIT Internal Medicine; ATTEND Internal Medicine
DX: L03.116 Cellulitis of left lower limb (principal); L03.115 Cellulitis of right lower limb; J44.9 Chronic obstructive pulmonary disease, unspecified; N42.9 Disorder of prostate, unspecified; J30.2 Other seasonal allergic rhinitis; R19.7 Diarrhea, unspecified; L98.8 Other specified disorders of the skin and subcutaneous tissue; F17.210 Nicotine dependence, cigarettes, uncomplicated; Z98.890 Other specified postprocedural states; Z71.6 Tobacco abuse counseling; Z91.89 Other specified personal risk factors, not elsewhere classified; Z79.899 Other long term (current) drug therapy; Z79.1 Long term (current) use of non-steroidal anti-inflammatories (NSAID); Z88.0 Allergy status to penicillin; Z91.048 Other nonmedicinal substance allergy status; Z80.9 Family history of malignant neoplasm, unspecified
CPT/HCPCS: 96365; 96366 ×3; 96367; 96372; 36410; 76937; 80053 ×4; 85025 ×4; 85610; 87040; 93970; G0378 ×4; G0379; C1751; S4990 ×2; J3370 ×3; J0690 ×3; J1650

== ENCOUNTER → 2020-07-11 | Outpatient (CLI) | payer MEDICARE | END | disposition home or self-care (01) | LOC: LABWHC1 11:22 | PROVIDERS: ATTEND Internal Medicine | DX: L03.116 Cellulitis of left lower limb (principal); L03.115 Cellulitis of right lower limb | CPT/HCPCS: 36415; 87040 ==

== ENCOUNTER → 2020-10-30 | Outpatient (CLI) | payer MEDICARE ==
[2020-10-30 16:34] LABS: Basophils % (A) 1 %; Eosinophils # (A) 0.3 k/uL (0-0.7); Eosinophils % (A) 4 %; HCT 42.5 % (39.0-53.0); HGB 13.4 gm/dL (13.0-17.5); Lymphocytes % (A) 15 %; MCH 27.5 pg (25.0-35.0); MCHC 31.4 g/dL (31.0-37.0); MCV 87.5 fL (80.0-100.0); Mean Platelet Volume 6.6; Monocytes # (A) 0.5 k/uL (0-1.0); Monocytes % (A) 7 %; Neutrophils # (A) 4.9 k/uL (1.3-7.7); Neutrophils % (A) 72 %; Platelet Count 234 k/uL (150-450); RBC 4.86 m/uL (4.30-5.90); RDW 14.7 % (11.5-15.5); WBC 6.8 k/uL (3.8-10.6)
[2020-10-30 16:44] LABS: INR 0.9 (<1.2); Partial Thromboplastin Time 22.9 sec (22.0-30.0); Prothrombin Time 9.5 sec (9.0-12.0)
[2020-10-30 16:47] LABS: ALT 16 U/L (4-49); AST 26 U/L (17-59); African American GFR (CKD) >90 (>60 ml/min/1.73 sqM); Albumin 3.4 g/dL (3.5-5.0); Alkaline Phosphatase 53 U/L (38-126); Anion Gap 4 mmol/L; Blood Urea Nitrogen 23 mg/dL (9-20); Carbon Dioxide 30 mmol/L (22-30); Chloride 104 mmol/L (98-107); Glucose 119 mg/dL (74-99); Non-African American GFR(CKD) 80 (>60 ml/min/1.73 sqM); Potassium 4.3 mmol/L (3.5-5.1); Sodium 138 mmol/L (137-145); Total Bilirubin 0.3 mg/dL (0.2-1.3); Total Protein 5.8 g/dL (6.3-8.2)
== END | disposition home or self-care (01) ==
LOC: LABWHC1 16:17
PROVIDERS: ATTEND Orthopaedic Surgery
DX: Z01.812 Encounter for preprocedural laboratory examination (principal); Z79.01 Long term (current) use of anticoagulants
CPT/HCPCS: 36415; 80053; 85025; 85610; 85730